=== PATIENT | male | born 1990 | race Hispanic/Latino ===

== ENCOUNTER 2017-01-12 17:19 | Emergency (ER) | payer MEDICAID ==
[2017-01-12 17:37] VITALS: BP 133/95; PULSE 70; RESP 18; TEMP 98.3; O2SAT 99
[2017-01-12] MEDS ORDERED: cefTRIAXone (Rocephin) 250 mg Inj IM ONE (18:40)
--- NOTE | 2017-01-12 18:51 | ED PDOC ---
HPI: Abdomen Time Seen by Provider: 01/12/17 17:56 Chief Complaint (Nursing): Abdominal Pain Chief Complaint (Provider): Abdominal Pain and Genitourinary issue History Per: Patient History/Exam Limitations: no limitations Current Symptoms Are (Timing): Still Present Associated Symptoms: denies: Nausea, Vomiting, Diarrhea, Constipation Exacerbating Factors: denies: Food (Normal Apetite) Additional History Per: Patient Additional Complaint(s): Mauri Melendez is a 26 year old male with a past medical history of HIV who presents to the ED with a chief complaint of abdominal pain and genitourinary issues onset x1week prior to arrival. Patient admits to having possible exposure due to unprotected sex and reports symptoms are similar to when he was diagnosed with gonorrhea. Patients Appetite is normal and associated symptoms include a subjective fever, and denies any vomiting, diarrhea, nausea, or constipation. Patient states he is starting care for HIV at [facility] in [facility]. Past Medical History Reviewed: Historical Data, Nursing Documentation, Vital Signs Vital Signs: Last Vital Signs Temp 98.3 F 01/12/17 17:32 Pulse 70 01/12/17 17:32 Resp 18 01/12/17 17:32 BP 133/95 H 01/12/17 17:32 Pulse Ox 99 01/12/17 19:12 - Medical History PMH: HIV - Surgical History Surgical History: No Surg Hx - Family History Family History: States: Unknown Family Hx - Social History Current smoker - smoking cessation education provided: No - Allergies Allergies/Adverse Reactions: Allergies Allergy/AdvReac Type Severity Reaction Status Date / Time No Known Allergies Allergy Verified 01/12/17 17:31 Review of Systems ROS Statement: Except As Marked, All Systems Reviewed And Found Negative Constitutional: Positive for: Fever (Subjective) Gastrointestinal: Positive for: Abdominal Pain. Negative for: Nausea, Vomiting , Diarrhea, Constipation Genitourinary Male: Positive for: Dysuria (Intermittent). Negative for: Hematuria Physical Exam - Reviewed Nursing Documentation Reviewed: Yes Vital Signs Reviewed: Yes - Physical Exam Appears: Positive for: Well, No Acute Distress Head Exam: Positive for: ATRAUMATIC, NORMAL INSPECTION, NORMOCEPHALIC Skin: Positive for: Normal Color, Warm, Dry Eye Exam: Positive for: Normal appearance, EOMI, PERRL ENT: Positive for: Normal ENT Inspection Neck: Positive for: Normal, Supple Cardiovascular/Chest: Positive for: Regular Rate, Rhythm, Chest Non Tender. Negative for: Bradycardia, Tachycardia Respiratory: Positive for: Normal Breath Sounds. Negative for: Wheezing, Respiratory Distress Gastrointestinal/Abdominal: Positive for: Normal Exam, Soft, Distended. Negative for: Tenderness, Mass, Guarding, Rebound Male Genital Exam: Positive for: normal genitalia (external), other (No testicular abnormalities). Negative for: inguinal tenderness (Has shsotty inguinal lymphadenopathy), lesions, urethral discharge Back: Positive for: Normal Inspection Extremity: Positive for: Normal ROM Neurologic/Psych: Positive for: Alert, Oriented - ECG O2 Sat by Pulse Oximetry: 99 (RA) Pulse Ox Interpretation: Normal Medical Decision Making Medical Decision Makin: Initial Impression: Penile discharge; Abdominal pain Plan: * U-Dip * Chlamydia/GC RNA, TMA * Ceftriaxone 250mg * Azithromycin 1000mg Scribe Attestation: Documented by Milton Musa acting as a scribe for Dr. Valeria Lopes MD. Provider Scribe Attestation: All medical record entries made by the Scribe were at my direction and personally dictated by me. I have reviewed the chart and agree that the record accurately reflects my personal performance of the history, physical exam, medical decision making, and the department course for this patient. I have also personally directed, reviewed, and agree with the discharge instructions and disposition. Disposition - Clinical Impression Clinical Impression: Urethritis - Disposition Referrals: [facility] [Outside] - 01/16/17 (PLEASE FOLLOW UP WITH YOUR DOCTORS/CLINIC SCHEDULED. YOU ALSO HAVE A NEW PATIENT APPOINTMENT 01/16/17 AT [facility]) Disposition: Routine/Home Disposition Time: 19:00 Condition: GOOD Instructions: Nonspecific Urethritis in Men (ED)
[2017-01-12] MEDS ORDERED: cefTRIAXone (Rocephin) 250 mg Inj ONE (19:10)
== END 2017-01-12 19:42 | disposition home or self-care (01) ==
LOC: H.ER 17:19
DX: N34.2 Other urethritis (principal); R10.9 Unspecified abdominal pain; R36.9 Urethral discharge, unspecified

== ENCOUNTER 2017-07-26 12:59 | Emergency (ER) | payer MEDICAID ==
[2017-07-26 13:08] VITALS: PULSE 90; RESP 18; TEMP 97.4; O2SAT 98
[2017-07-26] MEDS ORDERED: Lidocaine 1% (10 ml) Inj INFIL STA (13:22)
--- NOTE | 2017-07-26 13:23 | ED PDOC ---
HPI: General Adult Time Seen by Provider: 07/26/17 13:04 Chief Complaint (Nursing): Abnormal Skin Integrity Chief Complaint (Provider): Abnormal SKin Integrity History Per: Patient History/Exam Limitations: no limitations Onset/Duration Of Symptoms: Days (x 1) Additional Complaint(s): Mauri is a 27 year old male who is HIV positive presents to the Emergency Department complaining of a cut on his left thumb from a knife earlier today. Patient also states he performed oral sex one week ago and has throat pain. Patient requests for tests to rule out gonorrhea. PMD: No Provider Past Medical History Reviewed: Historical Data, Nursing Documentation, Vital Signs Vital Signs: Last Vital Signs Temp 97.4 F L 07/26/17 13:05 Pulse 90 07/26/17 13:05 Resp 18 07/26/17 13:05 BP Pulse Ox 98 07/26/17 14:28 - Medical History PMH: HIV - Surgical History Surgical History: No Surg Hx - Family History Family History: States: Unknown Family Hx - Allergies Allergies/Adverse Reactions: Allergies Allergy/AdvReac Type Severity Reaction Status Date / Time No Known Allergies Allergy Verified 01/12/17 17:31 Review of Systems ENT: Positive for: Throat Pain Skin: Positive for: Other (left thumb cut) Physical Exam - Reviewed Nursing Documentation Reviewed: Yes Vital Signs Reviewed: Yes - Physical Exam Appears: Positive for: Non-toxic Head Exam: Positive for: NORMAL INSPECTION Eye Exam: Positive for: Normal appearance Neck: Positive for: Supple Respiratory: Negative for: Respiratory Distress Extremity: Positive for: Other (Left Thumb - 1 cm cut over small portion of skin - dusky, elizabeth) Neurologic/Psych: Positive for: Gait - ECG O2 Sat by Pulse Oximetry: 98 (RA) Pulse Ox Interpretation: Normal Medical Decision Making Medical Decision Making: Time: 13:23 Plan: - Chlamydia/GC RNA, TMA - Gelfoam Size 12-7 1 spg TP - Lidocaine Hydrochloride 1% 10ml - Throat Culture - Urine Culture Time: 14:23 Left Thumb - Numbed skin and removed skin piece using sterile pair of scissors with no problems. - Wrapped with Kerlix Time: 14:29 Plan: - Rocephin 500 mg IM - Zithromax 1,000 mg PO Upon provider evaluation patient is medically stable, and requires no further treatment in the ED at this time. Patient will be discharged. Counseling was provided and all questions were answered regarding diagnosis and need for follow up for test results. There is agreement to discharge plan. Return if symptoms persist or worsen. Scribe Attestation: Documented by Kannan Figueredo, acting as a scribe for Radha Terrell PA-C. Provider Scribe Attestation: All medical record entries made by the Scribe were at my direction and personally dictated by me. I have reviewed the chart and agree that the record accurately reflects my personal performance of the history, physical exam, medical decision making, and the department course for this patient. I have also personally directed, reviewed, and agree with the discharge instructions and disposition. Disposition - Clinical Impression Clinical Impression: Skin avulsion, Routine screening for STI (sexually transmitted infection) - Patient ED Disposition Is Patient to be Admitted: No - Disposition Disposition: Routine/Home Disposition Time: 15:07 Condition: STABLE Instructions: Skin Avulsion (ED) Forms: [employer] (Panamanian), [facility] ED School/Work Excuse
[2017-07-26] MEDS ORDERED: Absorbable Gelatin Sponge Size 12-7 TP STA (13:24)
[2017-07-26] MEDS ORDERED: Lidocaine 1% Inj (20ml) ONE (13:49)
[2017-07-26] MEDS ORDERED: Absorbable Gelatin Sponge Size 12-7 ONE (14:03)
[2017-07-26] MEDS ORDERED: cefTRIAXone (Rocephin) 250 mg Inj IM STA (14:28)
[2017-07-26] MEDS ORDERED: cefTRIAXone (Rocephin) 250 mg Inj ONE (14:58)
[2017-07-26] MEDS ORDERED: Sterile Water 10 ML IV ONE (14:58)
== END 2017-07-26 15:11 | disposition home or self-care (01) ==
LOC: H.ER 12:59
DX: S61.012A Laceration without foreign body of left thumb without damage to nail, initial encounter (principal); W26.0XXA Contact with knife, initial encounter; Y92.89 Other specified places as the place of occurrence of the external cause; Z21 Asymptomatic human immunodeficiency virus [HIV] infection status; Z11.3 Encounter for screening for infections with a predominantly sexual mode of transmission
CPT/HCPCS: 87070; 87086; 87491; 87591; 96372; 99281; J0696

== ENCOUNTER 2017-11-21 10:39 | Emergency (ER) | payer MEDICAID ==
[2017-11-21 10:55] VITALS: BMI 23.7
[2017-11-21 10:58] VITALS: BP 130/75; PULSE 96; RESP 20; TEMP 98.4; O2SAT 97
--- NOTE | 2017-11-21 11:53 | ED PDOC ---
HPI: Male Pain Time Seen by Provider: 11/21/17 10:59 Chief Complaint (Nursing): GI Problem Chief Complaint (Provider): Rectal pain History Per: Patient History/Exam Limitations: no limitations Onset/Duration Of Symptoms: Days Current Symptoms Are (Timing): Still Present Associated Symptoms: denies: Fever, Chills Additional Complaint(s): 27yo male, HIV+ with unknown CD4+ count and low viral load, presents to ED for evaluation of itchiness and masses in his rectum. Patient states he recently had anal intercourse and while making a bowel movement earlier, he felt masses in his rectum. Patient states he looked inside his rectum and noticed 2 "white balls" inside. He also reports rectal bleeding as he has been wiping vigorously after making a bowel movement. He denies any associated fever, chills, nausea, vomiting or abdominal pain. He has no other medical complaints. Past Medical History Reviewed: Historical Data, Nursing Documentation, Vital Signs Vital Signs: Last Vital Signs Temp 98.4 F 11/21/17 10:55 Pulse 96 H 11/21/17 10:55 Resp 20 11/21/17 10:55 BP 130/75 11/21/17 10:55 Pulse Ox 97 11/21/17 10:55 - Medical History PMH: Anxiety, Depression, HIV - Surgical History Surgical History: No Surg Hx - Family History Family History: States: No Known Family Hx, Unknown Family Hx - Allergies Allergies/Adverse Reactions: Allergies Allergy/AdvReac Type Severity Reaction Status Date / Time No Known Allergies Allergy Verified 11/21/17 11:13 Review of Systems ROS Statement: Except As Marked, All Systems Reviewed And Found Negative Constitutional: Negative for: Fever, Chills Gastrointestinal: Positive for: Rectal Pain. Negative for: Nausea, Vomiting, Abdominal Pain, Diarrhea Physical Exam - Reviewed Nursing Documentation Reviewed: Yes Vital Signs Reviewed: Yes - Physical Exam Appears: Positive for: Non-toxic, No Acute Distress Head Exam: Positive for: ATRAUMATIC, NORMAL INSPECTION, NORMOCEPHALIC Skin: Positive for: Normal Color Eye Exam: Positive for: Normal appearance Neck: Positive for: Supple Cardiovascular/Chest: Positive for: Regular Rate, Rhythm Respiratory: Positive for: Normal Breath Sounds Gastrointestinal/Abdominal: Positive for: Normal Exam, Bowel Sounds, Soft. Negative for: Tenderness Rectal: Positive for: Rectal Tone Is: (good), Other (no external lesions or masses noted; three small lesions consisted with HPV noted inside rectum on mucosal surface. No blood, tenderness or discharge noted. ). Negative for: Black Stool, Hemorrhoids, Mass, Tenderness Neurologic/Psych: Positive for: Alert, Oriented. Negative for: Motor/Sensory Deficits - ECG O2 Sat by Pulse Oximetry: 97 (RA) Pulse Ox Interpretation: Normal Medical Decision Making Medical Decision Making: Impression: Lesions in rectum, likely HPV Plan: -- Rectal exam done with Nurse Tg Cavanaugh as superintendent marine oil terminal -- HPV culture -- RPR Discussed with patient the need for ID follow-up @ [facility]. Notified that topical anti-HPV medications not indicated for lesions on mucosal surface and may need last or cryotherapy. Scribe Attestation: Documented by Mariajose Ramos acting as a scribe for Sheila Raman MD. Provider Attestation: All medical record entries made by the Scribe were at my direction and personally dictated by me. I have reviewed the chart and agree that the record accurately reflects my personal performance of the history, physical exam, medical decision making, and the department course for this patient. I have also personally directed, reviewed, and agree with the discharge instructions and disposition. Disposition - Clinical Impression Clinical Impression: Genital warts - Disposition Disposition: Routine/Home Disposition Time: 14:20 Condition: STABLE Additional Instructions: FOLLOW-UP WITH [facility] WITHIN 2 DAYS FOR REEVALUATION. Instructions: Anogenital Warts Forms: [employer] (German)
== END 2017-11-21 15:00 | disposition home or self-care (01) ==
LOC: H.ER 10:39
DX: A63.0 Anogenital (venereal) warts (principal); F32.9 Major depressive disorder, single episode, unspecified; F41.9 Anxiety disorder, unspecified

== ENCOUNTER 2018-04-21 22:05 | Emergency (ER) | payer MEDICAID ==
[2018-04-21 22:05] VITALS: BMI 23.7
--- NOTE | 2018-04-21 23:21 | ED PDOC ---
HPI: Psych/Substance Abuse History Per: Patient Suicide/Self Injury Attempted (Context): None Additional Complaint(s): 27M PMH HIV/Bipolar/Depression currently stable BIBA after calling a suicide hotline. Pt reports that he was feeling down but adamantly denies suicidality and says he only wanted to "vent" to someone and neither his family or significant other were available to speak to. He feels he made the "bad decision" to call the hotline. He denies any suicide thoughts since 5-6 months ago when he admitted himself for help. He reports taking his medication on a regular basis and last saw someone for mental health in February/2018 at [place]. He smoked marijuana this morning and drank a bottle of wine over the course of 3 hours this evening with the last drink being at ~8pm. He does admit he was feeling a little overwhelmed but denies wanting to harm himself and wants to leave. <Maddie Singleton - Last Filed: 04/22/18 01:11> <Rodolfo Williamson Y - Last Filed: 04/22/18 01:42> Time Seen by Provider: 04/21/18 22:23 Chief Complaint (Nursing): Psychiatric Evaluation Past Medical History Vital Signs: Last Vital Signs Temp 37.0 C 04/21/18 22:08 Pulse 102 H 04/21/18 22:08 Resp 22 04/21/18 22:08 BP 136/79 04/21/18 22:08 Pulse Ox 97 04/21/18 22:08 - Medical History PMH: Anxiety, Bipolar Disorder, Depression, HIV - Family History Family History: States: Unknown Family Hx <Maddie Singleton - Last Filed: 04/22/18 01:11> Vital Signs: Last Vital Signs Temp 98.6 F 04/21/18 22:08 Pulse 102 H 04/21/18 22:08 Resp 22 04/21/18 22:08 BP 136/79 04/21/18 22:08 Pulse Ox 97 04/22/18 01:11 <Rodolfo Williamson - Last Filed: 04/22/18 01:42> - Allergies Allergies/Adverse Reactions: Allergies Allergy/AdvReac Type Severity Reaction Status Date / Time No Known Allergies Allergy Verified 04/21/18 22:08 Review of Systems ROS Statement: Except As Marked, All Systems Reviewed And Found Negative Constitutional: Negative for: Fever, Chills Cardiovascular: Negative for: Chest Pain Respiratory: Negative for: Cough, Shortness of Breath Gastrointestinal: Negative for: Nausea, Vomiting Genitourinary Male: Negative for: Dysuria Psych: Positive for: Anxiety, Depression (mild) <ManiMaddie - Last Filed: 04/22/18 01:11> Physical Exam - Reviewed Vital Signs Reviewed: Yes - Physical Exam Appears: Positive for: Well, Non-toxic Head Exam: Positive for: ATRAUMATIC Skin: Positive for: Normal Color, Warm, Dry Eye Exam: Positive for: EOMI, PERRL. Negative for: Nystagmus Neck: Positive for: Supple Cardiovascular/Chest: Positive for: Regular Rate, Rhythm, Tachycardia Respiratory: Positive for: Normal Breath Sounds. Negative for: Crackles, Rales , Wheezing Gastrointestinal/Abdominal: Positive for: Normal Exam, Bowel Sounds, Soft. Negative for: Tenderness Extremity: Positive for: Normal ROM Neurologic/Psych: Positive for: Alert, Oriented, Mood/Affect (sad, mild depression) <Maddie Singleton - Last Filed: 04/22/18 01:11> - Laboratory Results Result Diagrams: 04/21/18 23:10 04/21/18 23:10 - ECG O2 Sat by Pulse Oximetry: 97 <ManiMaddie - Last Filed: 04/22/18 01:11> - Laboratory Results Result Diagrams: 04/21/18 23:10 04/21/18 23:10 <Trina Williamsonmassimo Y - Last Filed: 04/22/18 01:42> Medical Decision Making Medical Decision Making: Mild Depression vs. suicidal ideation - CBC, BMP, etoh, tylenol, ASA, UDS, UA - EKG - Crisis Eval Evaluated by crisis and diagnosed with alcohol-induced depression, safe for discharge. <Maddie Singleton - Last Filed: 04/22/18 01:11> Medical Decision Making: 27yo male, comes to ER with complaints of suicidal ideation. Patient has no medical complaints. UDS reviewed, patient with alcohol level of 127 and +cannabis. Patient medically cleared for psychiatric evaluation. Patient seen and evaluated by crisis team and stable for d/c home per Dr. Champion. Diagnosis: Alcohol induced depression. 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 GENNARO has examined the patient and agrees with the treatment plan. <Rodolfo Williamson - Last Filed: 04/22/18 01:42>
[2018-04-21 23:46] LABS: URINE BILIRUBIN NEGATIVE (NEGATIVE); URINE BLOOD NEGATIVE (NEGATIVE); URINE CLARITY CLEAR (Clear); URINE COLOR YELLOW (YELLOW); URINE GLUCOSE (UA) NEG (Normal); URINE LEUKOCYTE ESTERASE NEG Leu/uL (Negative); URINE PROTEIN NEGATIVE (NEGATIVE); URINE UROBILINOGEN 0.2-1.0 mg/dL (0.2-1.0)
[2018-04-21 23:51] LABS: ACETAMINOPHEN < 10.0 ug/ml (10.0-30.0); BASO # 0.1 K/uL (0.0-0.2); BASO % 0.5 % (0.0-2.0); EOS # 0.7 K/uL (0.0-0.7); EOS % 5.1 % (0.0-4.0); HEMOGLOBIN 14.3 g/dL (12.0-18.0); LYMPH # 4.9 K/uL (1.0-4.3); MEAN CELL VOLUME 89.8 fl (80.0-94.0); MEAN CORPUSCULAR HEMOGLOBIN 31.3 pg (27.0-31.0); MEAN CORPUSCULAR HGB CONC 34.8 g/dL (33.0-37.0); MEAN PLATELET VOLUME 9.7 fl (7.2-11.7); MONO # 0.9 K/uL (0.0-0.8); MONO % 6.6 % (0.0-10.0); NEUT # 6.4 K/uL (1.8-7.0); NEUT % 49.8 % (50.0-75.0); NRBC % 0.1 % (0.0-0.0); RBC 4.58 Mil/uL (4.40-5.90); RED CELL DISTRIBUTION WIDTH 13.2 % (11.5-14.5); SALICYLATE < 1.0 mg/dl; WHITE BLOOD COUNT 12.9 K/uL (4.8-10.8)
[2018-04-21 23:54] LABS: BLOOD UREA NITROGEN 13 mg/dl (9-20); CALCIUM 8.8 mg/dL (8.4-10.2); GFR AFRICAN-AMERICAN > 60; GFR NON-AFRICAN AMERICAN > 60
[2018-04-22 00:10] LABS: BARBITURATES, UR NEGATIVE (NEGATIVE); BENZODIAZEPINES, UR POSITIVE (NEGATIVE); OPIATES, UR NEGATIVE (NEGATIVE); PHENCYCLIDINE, UR NEGATIVE (NEGATIVE)
[2018-04-22 04:41] VITALS: BP 153/87; PULSE 82; RESP 18; TEMP 98.3; O2SAT 99
--- NOTE | 2018-04-22 07:58 | CARD ---
APPROVED REPORT Date of service: 04/21/2018 EKG Measurement Heart [id number] <Conclusion> Normal sinus rhythm Normal ECG
== END 2018-04-22 01:50 | disposition home or self-care (01) ==
LOC: H.ER 22:05
DX: F10.94 Alcohol use, unspecified with alcohol-induced mood disorder (principal); F12.90 Cannabis use, unspecified, uncomplicated; F31.9 Bipolar disorder, unspecified; F41.9 Anxiety disorder, unspecified; B20 Human immunodeficiency virus [HIV] disease

== ENCOUNTER 2018-06-11 07:28 | Day surgery (SDC) | payer MEDICAID ==
[2018-06-11 07:47] VITALS: BMI 28.7
[2018-06-11] MEDS ORDERED: Lactated Ringer's 500 ML IV ONE ×2 (07:53→09:17)
[2018-06-11 08:07] VITALS: RESP 18
[2018-06-11] MEDS ORDERED: Propofol 10 mg/ml Inj (20 ML) ONE ×3 (08:08→09:19)
[2018-06-11] MEDS ORDERED: Midazolam 2 MG/2 ML VIAL ONE (08:08)
[2018-06-11 10:09] VITALS: PULSE 57; TEMP 97; O2SAT 10
[2018-06-11 10:10] VITALS: BP 139/91
== END 2018-06-11 12:04 | disposition home or self-care (01) ==
LOC: H.ENDO 07:28
PROVIDERS: ATTEND Internal Medicine Gastroenterology
DX: A63.0 Anogenital (venereal) warts (principal); K62.5 Hemorrhage of anus and rectum; K62.89 Other specified diseases of anus and rectum
CPT/HCPCS: 45380; 88305; J2001; J2250; J2704; J7120